=== PATIENT | female | born 1935 | race Caucasian/White ===

== ENCOUNTER → 2017-02-26 | Outpatient (CLI) | payer OTHER ==
[~2017-02-26] MED LIST: ASPIRIN EC81 M1 PO; B-12250 MCG PO; CALCIUM 600 +1 EAC1 PO; CELEBREX 200 M200 M1 PO; CIPROFLOXACIN500 M1 PO; COLACE100 MG PO; FISH OIL 1,0001 EAC5 PO; FLAGYL500 MG PO; HYDROCHLOROTHIA25 M1 PO; LISINOPRIL20 MG PO; LUMIGAN2.5 M1 OPHTHALMIC; MELOXICAM7.5 MG PO; MULTIVITAMINS PO; VITAMIN D1000 UNI1 PO; ZETIA10 MG PO
== END ==
LOC: RAD 08:46
DX: Z12.31 Encounter for screening mammogram for malignant neoplasm of breast (principal)

== ENCOUNTER → 2018-04-17 | Outpatient (CLI) | payer OTHER | LOC: RAD 03:18 | DX: Z12.31 Encounter for screening mammogram for malignant neoplasm of breast (principal); R92.1 Mammographic calcification found on diagnostic imaging of breast ==

== ENCOUNTER → 2019-04-17 | Outpatient (CLI) | payer OTHER | LOC: RAD 06:15 | DX: Z12.31 Encounter for screening mammogram for malignant neoplasm of breast (principal) ==

== ENCOUNTER → 2020-04-20 | Outpatient (CLI) | payer OTHER ==
[~2020-04-20] MED LIST changes: +CIPRO500 MG PO; +FLAGYL500 M1 PO; +PROTONIX 20 MG20 M1 PO
== END ==
LOC: RAD 13:12
DX: Z12.31 Encounter for screening mammogram for malignant neoplasm of breast (principal)

== ENCOUNTER 2020-12-27 20:39 | Emergency (ER) | payer OTHER ==
[~2020-12-27] VITALS: Ht 167.6 cm; Wt 113.4 kg
[2020-12-27] MEDS ORDERED: HYDROCODON-ACE1 EAC7 PO ×2 (22:35→22:40)
[2020-12-27 23:16] VITALS: BP 123/48
--- NOTE | 2020-12-28 13:41 | EKG ---
[facility] [place] [address] ELECTROCARDIOGRAM REPORT Name: TYRONEAYUSH Campbell Room #: [facility]#: [id number] Admission: 12/27/20 Attend Phys: Discharge: 12/27/20 Date of : 33 Report #: [id number] [facility] ED Test Date: 2020-12-27 Test Time: 21:03:49 Pat Name: AYUSH HANSEN Department: Room: Gender: F Owner: KACI : 1935 Requested By: Joseph Siegel Order Number: [id number] MD: Ruben Hernandez Measurements Intervals [place] Rate: 68 P: 31 ID: [id number] QRS: -44 QRSD: 115 T: 57 QT: 429 QTc: 457 Interpretive Statements Sinus rhythm Multiple ventricular premature complexes Probable left atrial enlargement Left ventricular hypertrophy Anterior Q waves, possibly due to LVH Compared to ECG 05/04/2019 03:03:15 Ventricular premature complex(es) now present ST (T wave) deviation now present Electronically Signed On 12-28-2020 13:40:55 AMUSEMENT PARK [employer]CHANIC by Ruben Hernandez [email or web address] <ELECTRONICALLY SIGNED> By: Ruben Hernandez MD, [facility] 12/28/20 1340 02 02 Ruben Hernandez MD, [facility] /EPI
== END 2020-12-27 23:18 | disposition admitted as inpatient to this hospital (09) ==
LOC: ER 20:39
DX: S32.591A Other specified fracture of right pubis, initial encounter for closed fracture (principal); Z90.49 Acquired absence of other specified parts of digestive tract; Z79.899 Other long term (current) drug therapy; Z88.1 Allergy status to other antibiotic agents; Z88.5 Allergy status to narcotic agent; W18.39XA Other fall on same level, initial encounter; Y93.89 Activity, other specified; Y92.89 Other specified places as the place of occurrence of the external cause; Y99.8 Other external cause status

== ENCOUNTER 2021-05-06 08:34 | Inpatient (IN) | payer OTHER ==
[~2021-05-06] VITALS: Ht 167.6 cm; Wt 77.2 kg
[2021-05-06] VITALS (7 sets, daily range): BP systolic 104–163; BP diastolic 58–88
--- NOTE | ~2021-05-06 | O ---
[facility] [place] [address] OPERATIVE REPORT Name: AYUSH HANSEN Room #: 209-P ADM IN M.R.#: [id number] Admission: 05/06/21 Attend Phys: Alison Boothe MD Discharge: Date of : 33 Report #: [id number] THIS REPORT FOR: cc: NO FAMILY PHYSICIAN or PCP NO FAMILY PHYSICIAN or PCP Jaret Myrick MD ~ DATE OF SERVICE: 05/07/2021 PREOPERATIVE DIAGNOSIS: Left inguinal hernia. POSTOPERATIVE DIAGNOSIS: Left inguinal hernia. OPERATION: Laparoscopic repair of left inguinal hernia with mesh. SURGEON: Jaret Myrick MD ANESTHESIA: General. ESTIMATED BLOOD LOSS: Minimal. SPECIMENS: None. DESCRIPTION OF PROCEDURE: After informed consent was obtained, the patient was brought to the operating room and placed supine. SCDs were placed and working, preoperative antibiotics were administered, general anesthesia was induced. The abdomen was prepped and draped in the usual sterile fashion. This was after a Santamaria catheter was placed. A 10 mm incision was made below the umbilicus. Fascia was incised and a trocar was placed. Pneumoperitoneum was established. Left and right lower quadrant 5 mm trocars were placed under direct vision. The patient was placed in the Trendelenburg position. The peritoneum at the left ASIS was scored. The peritoneum was then incised and reflected inferiorly. She had a large direct inguinal hernia. This was all carefully reduced. The defect was clearly visible. The peritoneum was then peeled down so that the mesh could be placed. A large Bard 3DMax left-sided mesh was inserted. It was inserted into the pocket. It was tacked to the pubic bone with 3 absorbable tacks. I then reapproximated the peritoneum with a running absorbable suture of Stratafix. The mesh was 100% covered. The ports were then removed under direct vision. Fascia at the umbilicus was closed with a [id number] 0 Vicryl. Skin was closed with 4-0 Monocryl. Incisions were dressed with Steri-Strips. COMPLICATIONS: None. [facility] [address] [place] [address] OPERATIVE REPORT Name: AYUSH HANSEN Room #: 209-P [facility] IN ..#: [id number] Admission: 05/06/21 Attend Phys: Alison Boothe MD Discharge: Date of : 34 Report #: [id number] DISPOSITION: The patient was taken to recovery in satisfactory condition. By: 1151 1214 Jaret Myrick MD /nt
[~2021-05-06 08:34] MED LIST changes: +HYDROCODON-ACE1 EAC7 PO
[2021-05-06 09:15] LABS: ABSOLUTE NEUTROPHILS 2.9 thou/uL (1.4-8.2); BASOPHILS 0.8 % (0.0-2.0); EOSINOPHILS 3.2 % (0.0-3.0); HEMATOCRIT 40.5 % (37.0-47.0); HEMOGLOBIN 13.2 gm/dL (12.0-15.0); LYMPHOCYTES 30.2 % (24.0-44.0); MCH 29.8 pg (26.0-34.0); MCHC 32.7 g/dL (28.0-37.0); MCV 91.2 fL (80.0-100.0); MONOCYTES 11.6 % (1.0-8.0); PLATELET COUNT 157 thou/uL (150-400); POLYS 54.2 % (36.0-66.0); RBC 4.44 mil/uL (4.20-5.00); RDW 15.1 % (10.5-14.5); WBC 5.4 thou/uL (4.0-11.0)
[2021-05-06 09:33] LABS: CALCIUM 9.5 mg/dL (8.5-10.1); CREATININE 1.2 mg/dL (0.6-1.0); POTASSIUM 3.4 mmol/L (3.5-5.1)
[2021-05-06 09:39] LABS: ALBUMIN 2.9 g/dL (3.4-5.0); TOTAL BILIRUBIN 0.4 mg/dL (0.2-1.0); TOTAL PROTEIN 6.4 g/dL (6.4-8.2)
[2021-05-06 14:21] LABS: CALCIUM 9.6 mg/dL (8.5-10.1); POTASSIUM 3.5 mmol/L (3.5-5.1)
[2021-05-06 14:24] LABS: INR 1.01
--- NOTE | 2021-05-06 15:58 | NUR ---
PT TO THE UNIT FROM THE ER WITH ABDO PAIN. SEEN BY SURGERY AND TO HAVE SURGERY AT APPROX 0900 IN THE AM. PT EWELINA DIET AND FLUIDS. TO BE NPO AFTER MIDNIGHT. IV FLUIDS ORDERED. NO CO'S OF PAIN OR NAUSEA. PT ONLY WITH PAIN IF BELLY IS PUSED ON. FAMILY AT THE BEDSIDE. NO CO'S AT THE PRESENT TIME.
[2021-05-06 16:45] LABS: URINE BILIRUBIN NEGATIVE (Negative); URINE BLOOD NEGATIVE (Negative); URINE CLARITY SL CLOUDY; URINE COLOR YELLOW; URINE GLUCOSE-RANDOM* NEGATIVE (Negative); URINE KETONES NEGATIVE (Negative); URINE LEUKOCYTES-REFLEX NEGATIVE (Negative); URINE NITRITE-REFLEX NEGATIVE (Negative); URINE PROTEIN (DIPSTICK) NEGATIVE (Negative); URINE SPECIFIC GRAVITY <= 1.005 (1.005-1.035); URINE UROBILINOGEN 0.2 E.U./dl (0.2-1.0)
[2021-05-07] VITALS (7 sets, daily range): BP systolic 145–184; BP diastolic 64–90
[2021-05-07 04:04] LABS: ABSOLUTE NEUTROPHILS 2.3 thou/uL (1.4-8.2); BASOPHILS 0.6 % (0.0-2.0); EOSINOPHILS 4.6 % (0.0-3.0); HEMATOCRIT 36.7 % (37.0-47.0); HEMOGLOBIN 12.2 gm/dL (12.0-15.0); LYMPHOCYTES 42.6 % (24.0-44.0); MCH 30.5 pg (26.0-34.0); MCHC 33.2 g/dL (28.0-37.0); MCV 91.9 fL (80.0-100.0); MONOCYTES 11.5 % (1.0-8.0); PLATELET COUNT 141 thou/uL (150-400); POLYS 40.7 % (36.0-66.0); RBC 3.99 mil/uL (4.20-5.00); WBC 5.7 thou/uL (4.0-11.0)
[2021-05-07 04:20] LABS: ALBUMIN 2.5 g/dL (3.4-5.0); CALCIUM 8.8 mg/dL (8.5-10.1); CREATININE 1.1 mg/dL (0.6-1.0); PHOSPHORUS 3.5 mg/dL (2.5-4.9); TOTAL BILIRUBIN 0.5 mg/dL (0.2-1.0); TOTAL PROTEIN 5.6 g/dL (6.4-8.2)
[2021-05-07 14:06] LABS: POTASSIUM 3.6 mmol/L (3.5-5.1)
[2021-05-07 14:35] LABS: CALCIUM 9.2 mg/dL (8.5-10.1); CREATININE 1.1 mg/dL (0.6-1.0); MAGNESIUM 1.9 mg/dL (1.8-2.4); PHOSPHORUS 3.1 mg/dL (2.5-4.9)
--- NOTE | 2021-05-07 16:57 | NUR ---
ASSESSMENTS CHARTED- MEDS PER DEC - IV FLUIDS CHANGED ORDERED. PT TO SURGERY THIS AM FOR HERNIA REPAIR. RETURNED FROM SURGERY WITH 3 PUNCRURE WOUNDS TO ABDO WITH STERRI STRIPS INSITU. VSS. PT VERY SLEEPY AND CONFUSED. PT WANTING TO GET OUT OF BED TO USE BSC - ATTMEPTED TO EXPLAIN THAT SHE WAS TOO SLEEPY TO GET OUT OF BED AND ATTEMPTED TO HAVE HER USE THE BEDPAN. UNABLE TO USE BEDPAN - TALKING WITH PT AND DAUGHTER - STATED THAT A HASSAN MAY BE THE ANSER DUE TO HER BEING SO SLEEPU AND UNABLE TO USE THE BEDPAN - THE DAUGHTER AGREED THIS WOULD BE THE BEST SOLUTION - CORPORATE SALES MANAGER TIMOTHY AND i ATTEMPTED TO PLACE HASSAN - PATIENT BECAME COMBATIVE - KICKING AND SLAPPING AT US. UNABLE TO PALCE HASSAN - PATIENT NOW APPEAR AWAKE SO WE ATTEMPTED TO PLACE GAIT BELT TO MOVE TO BSC AND PATIENT SLAPPING AND FIGHTING US TO PLACE GAIT BELT - GAIT BELT ABLE TO BE PLACED AFTER MUCH RESISTANCE - PT UP TO THE COMMODE - VOIDED 100CC AND THEN REFUSED TO GET BACK INTO BED - EACH TIME WE ATTMEPTED TO STAND PATIENT SHE WOULD GRAN A HOLD OF THE COMMODE AND ATTMEPT TO STAND UP WITH IT STATING SHE WAS NOT GOING TO GET BACK IN BED - PATIENT THEN SLAPPING MY HANDS AWAY TOOK OFF GAIT BELT AND THREW IT ACROSS THE ROOM ON THE FLOOR. ANOTHER NURSE ASSISTED INGETTING PATIENT BACK TO BED WHICH SHE FINALLY AGREED TO DO. DURRING HER CONBATIVNESS PT HIT L HAND ON ? SOMETHING AND HEAMMATOMA PRESENT - DR PACHECO CALLED AND INFORMED OF THE ABOVE AND WILL OBTAIN AND XRAY OF L HAND /WRIST TO ENSURE IT IS OKAY. ABDO REMAINS INTACK - PATIENT WITH NO CO'S OF PAIN - CONTINUES TO BE CONFUSED AND PARANOID. EWELINA FLUIDS. FAMILY AT THE BEDSIDE.
[2021-05-08 05:21] VITALS: BP 151/71
--- NOTE | 2021-05-08 07:49 | NUR ---
ASSESSMENTS CHARTED, MEDS CHARTED GIVEN. PATIENT RESTING IN BED DURING SHIFT. PATIENT STILL RECOVERING FROM ANESTHESIA FROM TODAYS LAPRISCOPIC SURGERY TO REPAIR HERNIA. 3 LAP SITES C/D/I. PATIENT SLOW TO ANSWER QUESTIONS, EASILY REORIENTED. C/O PAIN IN ABDOMEN. HYDROCODONE GIVEN CHARTED. PATIENT UP TO BSC WITH ASSIST.
--- NOTE | 2021-05-08 07:49 | EKG ---
[place] [address] [facility] [place] [address] ELECTROCARDIOGRAM REPORT Name: AYUSH HANSEN Room #: 209-P ADM IN M.R.#: [id number] Admission: 05/06/21 Attend Phys: Alison Boothe MD Discharge: Date of : 34 Report #: [id number] [facility] ED Test Date: 2021-05-06 Test Time: 11:55:03 Pat Name: AYUSH HANSEN Department: Room: 209 P Gender: F Sales Representative [employer]: : 1935 Requested By: Joseph Siegel Order Number: [id number] MD: Ruben Hernandez Measurements Intervals [place] Rate: 63 P: 14 MO: 157 QRS: -52 QRSD: 120 T: 27 QT: 412 QTc: 422 Interpretive Statements Sinus rhythm Incomplete left bundle branch block Left ventricular hypertrophy Anterior Q waves, possibly due to LVH ST elevation suggests acute pericarditis Compared to ECG 12/27/2020 21:03:49 Left bundle-branch block now present ST (T wave) deviation now present Ventricular premature complex(es) no longer present Electronically Signed On 05-08-2021 7:49:28 CDT by Ruben Hernandez [email or web address] <ELECTRONICALLY SIGNED> By: Ruben Hernandez MD, FAC 05/08/21 0749 1155 1155 Ruben Hernandez MD, [facility] /EPI
[2021-05-08 08:00] VITALS: BP 133/62
[2021-05-08 10:48] VITALS: BP 148/55
--- NOTE | 2021-05-08 10:50 | NUR ---
Chart review. Discussed during los, that pt/ot eval and then possible dc soon. Cm visited with patient and granddaughter and family at bedside. Intro to cm and dcp, education on hh and rehab. Marie reported she been living at [facility] and currently at [facility] location. she fall in december in parking lot, drove home with fracture and now in process of moving. live independent alone since in 2012. Has walker with seat, shower chair and call light if needs help. Uses elevator. Goes to meals at [place]. manage own mediation which is just eye drops. No longer driving. Had covid vaccine in december 2020. No hh or rehab in the past. Will cont following as needed for dc needs.
[2021-05-08 15:15] VITALS: BP 140/58
[2021-05-08 19:08] VITALS: BP 154/65
--- NOTE | 2021-05-08 20:03 | NUR ---
ASSUMED CARE SHIFT CHANGE. ASSESSMENTS CHARTED.VSS. LAP SITES CDI, STERI STRIPS INTACT. PHYS THERAPY AND OT WITH PT THIS SHIFT, EWELINA WELL. PT UP WITH WALKER. BM THIS SHIFT .FAMILY AT BEDSIDE, UPDATED ONPOC. DENIES NEEDS, DC ONCE MEDICALLY STABLE. REPORT PASSED TO GIANNI RN.
[2021-05-09 03:01] LABS: HEMATOCRIT 31.7 % (37.0-47.0); HEMOGLOBIN 10.5 gm/dL (12.0-15.0); MCH 30.3 pg (26.0-34.0); MCHC 33.2 g/dL (28.0-37.0); MCV 91.3 fL (80.0-100.0); RBC 3.48 mil/uL (4.20-5.00); RDW 14.8 % (10.5-14.5); WBC 6.2 thou/uL (4.0-11.0)
[2021-05-09 03:40] VITALS: BP 143/64
[2021-05-09 03:43] LABS: CALCIUM 8.4 mg/dL (8.5-10.1); CREATININE 0.9 mg/dL (0.6-1.0); POTASSIUM 3.3 mmol/L (3.5-5.1)
[2021-05-09 07:23] VITALS: BP 139/74
--- NOTE | 2021-05-09 08:26 | NUR ---
pt resting quietly in bed, A&O yet forgetful, unable to use call light for assist, iv with fluids infusing L fa, up with assist and walker several times thru the noc, c/o gen abd pain at hs and prn med given with relief, anxious this am to go home, vss, report given to next shift to con't with ppoc.
--- NOTE | 2021-05-09 08:51 | NUR ---
Cm visited with kiersten and her grand daughter at bedside about hh recommendation. Pt and family would like to use [facility] since lives at [facility]. Referral faxed to [facility] ( pt, ot, nursing).
[2021-05-09 11:22] VITALS: BP 139/74
[2021-05-09] MEDS ORDERED: FLAGYL500 M1 PO (12:30)
[2021-05-09 13:36] VITALS: BP 139/74
--- NOTE | 2021-05-09 15:21 | NUR ---
RECEIVED PATIENT CONSCIOUS AND ORIENTED.ON ROOM AIR BREATHING SPONTANEOUSLY.NOT IN PAIN OR DISTRESS. WITH INCISIONAL WOUND AT THE ABDOMEN INTACT, NO OOZING FROM THE SITE. FACILITATED DISCHARGE TODAY.DISCHARGE PACKET GIVEN AND EXPLAINED.DISCHARGED PATIENT FROM THE UNIT ON STABLE CONDITION.
--- NOTE | 2021-05-10 09:46 | HC ---
[facility] [place] [address] CONSULTATION Name: AYUSH HANSEN Room #: 209-P [facility] IN M.R.#: [id number] Admission: 05/06/21 Attend Phys: Alison Boothe MD Discharge: 05/09/21 Date of : 33 Report #: [id number] THIS REPORT FOR: cc: NO FAMILY PHYSICIAN or PCP NO FAMILY PHYSICIAN or PCP John Ding MD ~ cc: Alison Boothe MD, Dr. Myrick DATE OF SERVICE: 05/06/2021 HISTORY OF PRESENT ILLNESS: The patient is an 85-year-old female with a history of intermittent left lower quadrant abdominal pain. The pain has become worse recently. She believes she has a history of a hernia in that area. She has actually had a previous right inguinal hernia repaired in the past. She underwent a CT scan of the abdomen and pelvis on admission this morning, which showed sigmoid colon wall thickening with adjacent stranding and inflammatory changes, most pronounced in the left femoral and inguinal hernia, which shows wall thickening, adjacent stranding. Diverticulosis was noted. This thickening in the sigmoid colon may be related to edema from incarceration. Dr. Myrick with general surgery has evaluated the patient, reduced the hernia and his plan is for laparoscopic hernia repair tomorrow. The patient is feeling somewhat better, although she is ammonia still operator in the left lower quadrant. She denies any recent nausea, vomiting, fevers or chills. I had a long discussion with her and her family today. No previous history of colonoscopy. The patient denies any recent history of diarrhea or constipation or blood in her stools. PAST MEDICAL HISTORY: Previous left inguinal hernia repair, previous history of CVA, chronic lumbar back pain, glaucoma. PAST SURGICAL HISTORY: Appendectomy, cataract surgery. MEDICATIONS: On admission, Lumigan, multivitamin, Caltrate, fish oil. ALLERGIES: DOXYCYCLINE AND TRAMADOL. REVIEW OF SYSTEMS: As per HPI. SOCIAL HISTORY: She denies any tobacco or alcohol use. FAMILY HISTORY: Negative for colon cancer. PHYSICAL EXAMINATION: VITAL SIGNS: Temperature is 36.7, pulse 63, blood pressure 159/71, respiratory rate is 16. GENERAL: She is alert and oriented x3, in no acute distress. HEENT: Sclerae nonicteric. Oropharynx clear. [address] [address] CONSULTATION Name: TYRONEAYUSH Campbell Room #: 209-P [facility].#: [id number] Admission: 05/06/21 Attend Phys: Alison Boothe MD Discharge: 05/09/21 Date of : 34 Report #: [id number] NECK: Supple, without lymphadenopathy. CARDIOVASCULAR: Regular rate. CHEST: Clear to auscultation bilaterally. ABDOMEN: Soft. She is tender to palpation in the left lower quadrant, nondistended, positive bowel sounds. EXTREMITIES: No cyanosis, clubbing or edema. LABORATORY DATA: WBC 5.4, hemoglobin 13.2, platelet count 157. INR is pending. Sodium 144, potassium 3.5, chloride 107, bicarbonate 31, BUN 10, creatinine 1.0, glucose 86, calcium 9.6, magnesium 2.0, total bilirubin 0.4, AST 18, ALT is 12, alkaline phosphatase 72, total protein 6.4, albumin 2.9. ASSESSMENT AND PLAN: Left inguinal hernia. Suspect sigmoid inflammation is due to partially incarcerated hernia, which has now been reduced. Agree with plan of surgical repair of hernia tomorrow by Dr. Myrick. I explained to the patient and family. I would recommend later performing a colonoscopy as she has never had one in the past. We would likely do this in 6 weeks or more after her surgery. We will continue to follow. Thank you for allowing me to participate in her care. <ELECTRONICALLY SIGNED> By: John Ding MD 05/10/21 0946 [id number] [id number] John Ding MD /nt
[2021-05-10 11:21] VITALS: BP 139/74
--- NOTE | 2021-05-10 11:24 | NUR ---
Home health orders faxed to [facility] and confirmed with intake.
== END 2021-05-09 14:55 | disposition home health service (06) | DRG 350 ==
LOC: ER 08:34 → 2N 11:54 → EROBS 11:54 → 2N 12:36
PROVIDERS: Emergency Medicine; Hospitalist; ADMIT Internal Medicine; ATTEND Internal Medicine
PROC: 0YU64JZ Supplement Left Inguinal Region with Synthetic Substitute, Percutaneous Endoscopic Approach (ICD-10-PCS; principal; 2021-05-07)
DX: K40.30 Unilateral inguinal hernia, with obstruction, without gangrene, not specified as recurrent (principal); E43 Unspecified severe protein-calorie malnutrition; N17.0 Acute kidney failure with tubular necrosis; K52.9 Noninfective gastroenteritis and colitis, unspecified; G89.29 Other chronic pain; M54.5 Low back pain; E87.6 Hypokalemia; N18.30 Chronic kidney disease, stage 3 unspecified; K57.90 Diverticulosis of intestine, part unspecified, without perforation or abscess without bleeding; R33.9 Retention of urine, unspecified; F32.9 Major depressive disorder, single episode, unspecified; R53.81 Other malaise; S60.212A Contusion of left wrist, initial encounter; R63.4 Abnormal weight loss; Z68.27 Body mass index [BMI] 27.0-27.9, adult; I12.9 Hypertensive chronic kidney disease with stage 1 through stage 4 chronic kidney disease, or unspecified chronic kidney disease; Z90.49 Acquired absence of other specified parts of digestive tract; Z98.42 Cataract extraction status, left eye; Z86.73 Personal history of transient ischemic attack (TIA), and cerebral infarction without residual deficits; Z98.41 Cataract extraction status, right eye; Z88.8 Allergy status to other drugs, medicaments and biological substances; Y93.89 Activity, other specified; Y92.89 Other specified places as the place of occurrence of the external cause; Y99.8 Other external cause status; Z79.899 Other long term (current) drug therapy
CPT/HCPCS: 10081; 50101; 50411; 50455; 50555; 50848; 50854; 51489; 52265; 52266; 53307; 53314; 56462; 56525; 56531; 58574; 62110; 62900; 70005